=== PATIENT | female | born 1985 | race Caucasian/White ===

== ENCOUNTER 2024-03-11 10:11 | Emergency (ER) | payer OTHER, SELFPAY ==
[2024-03-11 10:11] VITALS: BMI 29.4
[2024-03-11 10:29] VITALS: BP 146/87
[2024-03-11 10:45] LABS: % Basophils 0.4 % (0-2); % Eosinophils 0.8 % (0-6); % Immature Granulocytes 0.3 % (0-0.5); % Lymphocytes 42.9 % (20.5-51.1); % Monocytes 7.4 % (1.7-9.3); % Neutrophils 48.2 % (42.2-75.2); Absolute Eosinophils 0.1 10^3/uL (0-0.7); Absolute Monocytes 0.7 10^3/uL (0.1-0.6); Absolute Neutrophils 4.5 10^3/uL (1.4-6.5); Hematocrit 39.7 % (37.0-47.0); Hemoglobin 13.5 g/dL (12.0-16.0); Mean Corpuscular Volume 85.2 fL (81.0-99.0); Mean Platelet Volume 10.4 fL (7.4-10.4); Nucleated Red Blood Cells % 0 %; Platelet Count 322 10^3/uL (130-400); Red Blood Cell Count 4.66 10^6/uL (4.20-5.40); Red Cell Dist. Width 12.9 % (11.5-14.5); White Blood Cell Count 9.4 10^3/uL (4.8-10.8)
[2024-03-11 10:59] LABS: HCG, Serum Qualitative Screen Negative
[2024-03-11 11:08] LABS: ALT (SGPT) 23 U/L (0-35); AST (SGOT) 22 U/L (14-36); Albumin 4.5 g/dl (3.5-5.0); Alkaline Phosphatase 59 U/L (38-126); Blood Urea Nitrogen 16 mg/dl (7-17); Calcium 9.6 mg/dl (8.4-10.2); Carbon Dioxide 23 mmol/L (22-30); Chloride 106 mmol/L (98-107); Glucose 93 mg/dl (70-99); Potassium 4.5 mmol/L (3.5-5.1); Sodium 140 mmol/L (135-145); Total Bilirubin 0.5 mg/dl (0.2-1.3); Total Protein 7.6 g/dl (6.3-8.2); eGFR > 60.00
[2024-03-11 11:10] LABS: Troponin I < 0.012 ng/ml
[2024-03-11 11:12] VITALS: BP 125/79
[2024-03-11 11:13] VITALS: BP 125/79
--- NOTE | 2024-03-11 11:53 | ED.GENMED ---
History of Present Illness
General
Chief Complaint: Chest Pain
Source: patient
Exam Limitations: none
Time Seen by Provider: 03/11/24 11:38
Nursing documentation reviewed up to this point in time: agreed with
History of Present Illness
History of Present Illness:
PT IS A 38 Y/O f WITH H/O CROHNS ON REMICADE doing well
gerd on prilosec
here with L sided chest burning symptoms that started around 3 am. she isn't sure if it woke her but she woke and had a headache, took some tylenol.
she said she was up for a few hours and noticed a coming and going burning pain lasting about 30 seconds. she has had some stress but nothing too serious.
she didn't think this was acid reflux because it was off to the L side
nonradiating, not associated with jaw pain, nauesa, vomiting, sweatiness, exertion, sob
she has no PE RF
last menstrual 3 weeks ago
no OCPs
no premature CAD
nonsmoking
not having symtoms currnetly
Past History
Past History
ED Past Medical History: Other (Inflammatory bowel disease)
ED Past Surgical History: Appendectomy and Bowel resection
Social History
Tobacco: Non-smoker
Living: with family
Employment: Employed
Review of Systems
Review of Systems
Allergies reviewed?: Yes
All Other Systems: Not applicable
Phy Exam
Physical Exam
Physical Exam:
GENERAL: Alert , in no apparent distress
EYE: pupils equal and reactive
NECK: Supple
ENT: o/p clr, mmm.
CARDIAC: Regular rate and rhythm .no edema, no appreciated murmur
LUNGS: Clear breath sounds bilaterally, no acute respiratory distress, no wheezes/rales/rhonchi
ABDOMEN: Soft, without focal tenderness, no r/g, no cvat, normal bowel sounds
NEUROLOGICAL: Alert and oriented, no focal neuro deficits
SKIN: Warm and dry, skin intact.
MUSCULOSKELETAL: No edema, well perfused. neg flako's sign
PSYCH: Normal and appropriate interaction.
Scores
Heart Score for Chest Pain Patients
STEMI patient?: No
History: Slightly or Non-Suspicious
ECG: Normal
Age: </= 45 years
Risk Factors: No Risk Factors
Troponin: </= Normal Limit
Heart Score for Chest Pain Patients: 0
Heart Score Risk: 2.5% MACE over next 6 weeks
Course
Orders/Labs/Results
Orders:
Orders
03/11/24 10:15
ECG [Electrocardiogram (*1)] Urgent
Reason for Study: Chest Pain
EKG- Treatment ONCE
03/11/24 10:32
Test Result ONCE
03/11/24 10:37
Complete Blood Count/With Diff Urgent
Comprehensive Metabolic Panel Urgent
HCG, Serum Qualitative Screen Urgent
Comment: Notify provider if positive test present
Troponin I Urgent
03/11/24 11:53
Mag Hydrox/Al Hydrox/Simeth [Maalox] 30 ml Phenobarb/Hyoscy/Atropine/Scop [] 10 ml PO NOW
CR Chest - 2 Views Urgent
Comment:
Reason For Exam: CHEST PAIN
03/11/24 11:56
Mag Hydrox/Al Hydrox/Simeth [Maalox] 30 ml .ROUTE .STK-MED ONE
Phenobarb/Hyoscy/Atropine/Scop [] 10 ml .ROUTE .STK-MED ONE
Abnormal Lab Results
03/11/24
10:37
Absolute Lymphs (auto) 4.0 H 10^3/uL
(1.2-3.4)
Absolute Monos (auto) 0.7 H 10^3/uL
(0.1-0.6)
03/11/24 10:37
03/11/24 10:37
Vital Signs
Initial and Last Documented VS:
Initial Vital Signs
Temp Pulse Resp BP Pulse Ox
98.3 F 68 16 146/87 98
03/11/24 10:29 03/11/24 10:29 03/11/24 10:29 03/11/24 10:29 03/11/24 10:29
Last Documented Vital Signs
Temp Pulse Resp BP Pulse Ox
98.3 F 58 18 119/76 97
03/11/24 10:29 03/11/24 13:15 03/11/24 13:15 03/11/24 13:12 03/11/24 13:15
MDM/Problems Addressed
Differential Diagnosis Includes:
acs, gerd, anxiety, chest wall pain
MDM/Problems Addressed:
38 y/o F with h/o crohns on remicade, GERD
here with L sided chest wall burning sensation coming and going since 3 am
not severe
not exertional
no associated sypmtoms
no PE rf
heart score is 0
ekg shows sinus rhythm with [address] changes
trop neg which was drawn 7 hours after onset reassuring this is not ACS
suspect gerd
gi cocktail, cxr.
cxr indep reivewed, neg
feels better
d/c home
*Critical Care Note
Total Time (30-74mins, 75-104mins- exclusive of procedures): Not Applicable
ED Attending Note
-
Portions of this chart may have been created with voice recognition software.� Occasional wrong word or��sound alike� substitutions may have occurred due to the inherent limitations of voice recognition software.
Discharge Plan
Departure
Patient Disposition: Home (Routine Discharge)
Date of Disposition: 03/11/24
Time of Disposition: 13:15
Patient with high blood pressure during this ER visit?: No
Condition: Fair
Covid-19: Not Applicable
Discharge Problem:
Chest pain
Instructions: Chest Pain PCP Follow Up
Prescriptions:
No Action
Vitamin D
1 tab PO DAILY
Remicade:
7.5 applic IV [id number]
prenat.vits,keri,lan-elkk-backj Tablet
1 tab PO DAILY
sennosides-docusate sodium 8.6-50 mg Tablet
1 tab PO DAILYPRN PRN (Reason: constipation) Qty: 0 0RF
ibuprofen 600 mg Tablet
600 mg PO Q6HPRN PRN (Reason: moderate pain/cramps) Qty: 45 0RF
acetaminophen 325 mg Tablet
650 mg PO Q4HPRN PRN (Reason: mild pain) Qty: 0 0RF
Referrals:
Em Fermin MD [Family Provider] -
Activity Restrictions/Additional Instructions:
WE ARE NOT SURE THE CAUSE OF YOUR CHEST PAIN
THIS COULD BE ACID REFLUX OR STRESS/ANXIETY
YOU CAN TRY MAALOX 2-3 TIMES A DAY TODAY NEEDED
FOLLOW UPW ITH YOUR FAMILY DOCTOR IN A FEW DAYS, YOU MAY NEED REFERRAL FOR MORE TESTING IF THIS CONTINUES
RETURN FOR:EXERTIONAL PAIN, SHORTNESS OF BREATH, VOMITING ,BLACK STOOL, FEVER, OR ANY CONCERNS.
Interventions
Interventions:
*Risk Screen - Suicide Last Done: 03/11/24 10:29
*General Assessment Last Done: 03/11/24 10:29
*Neglect/Abuse Screening Last Done: 03/11/24 10:29
ED- Fall Risk Assessment Last Done: 03/11/24 11:24
*ED COVID-19 Vaccine History Last Done: 03/11/24 14:01
*Nursing Disposition Last Done: 03/11/24 14:01
ED- Cardiac Assessment Last Done: 03/11/24 11:24
Discharge Date and Time
Discharge Date/Time: 03/11/24 13:30
Print Language: UGANDAN
[2024-03-11 12:00] VITALS: BP 112/72
[2024-03-11] MEDS: MAALOX 40 PO (12:03)
[2024-03-11 13:12] VITALS: BP 119/76
== END 2024-03-11 13:30 | disposition home or self-care (01) ==
LOC: EMR 10:11
PROVIDERS: Emergency Medicine; EMERGENCY PHYSICIAN Emergency Medicine; FAMILY PHYSICIAN Internal Medicine
DX: R07.89 Other chest pain (principal); K21.9 Gastro-esophageal reflux disease without esophagitis; K50.90 Crohn's disease, unspecified, without complications; Z79.899 Other long term (current) drug therapy; Z90.49 Acquired absence of other specified parts of digestive tract
CPT/HCPCS: 99285; 71046; 80053; 84484; 84703; 85025; 93005

== ENCOUNTER → 2024-04-28 09:11 | Outpatient (REF) | payer OTHER, SELFPAY | LOC: MRI 3T 09:11 | PROVIDERS: ATTENDING PHYSICIAN Internal Medicine Gastroenterology; FAMILY PHYSICIAN Internal Medicine | DX: K52.9 Noninfective gastroenteritis and colitis, unspecified (principal) | CPT/HCPCS: 72197; 74183; A9575 ==

== ENCOUNTER 2024-12-30 06:22 | Day surgery (SDC) | payer OTHER, SELFPAY | END 2024-12-30 14:59 | disposition home or self-care (01) | LOC: GI 06:22 | PROVIDERS: ATTENDING PHYSICIAN Internal Medicine Gastroenterology | DX: K50.80 Crohn's disease of both small and large intestine without complications (principal); R14.0 Abdominal distension (gaseous); K22.89 Other specified disease of esophagus; K44.9 Diaphragmatic hernia without obstruction or gangrene; K31.7 Polyp of stomach and duodenum; K62.1 Rectal polyp; K31.89 Other diseases of stomach and duodenum; K29.50 Unspecified chronic gastritis without bleeding; K86.89 Other specified diseases of pancreas | CPT/HCPCS: 43251; 43239; 45380; 88305; 88342 ==